=== PATIENT | female | born 1995 | race Caucasian/White ===

== ENCOUNTER 2017-09-16 12:59 | Emergency (ER) | payer OTHER ==
--- NOTE | 2017-09-16 13:01 | ER Document Report ---
HPI - HPI Patient complains to provider of: eye irritation bilaterally Onset: This afternoon Context: 21 yo non contact lense wearer.female c/o sudden onset of red itchy eyes after eating at [employer] for lunch today. No new makeup or detergents. NO previous sx like this. No eyedrops. No meds. No pain, no drainage. Associated Symptoms: None Exacerbated by: Denies Relieved by: Denies - ROS ROS below otherwise negative: Yes Systems Reviewed and Negative: Yes All other systems reviewed and negative Past Medical History - General Information source: Patient - Social History Smoking Status: Never Smoker Frequency of alcohol use: None Drug Abuse: None Occupation: [employer] Lives with: Spouse/Significant other Family History: Reviewed & Not Pertinent - Medical History Medical History: Negative Past Surgical History: Reports: Hx Section Vertical Provider Document - CONSTITUTIONAL Agree With Documented VS: Yes Exam Limitations: No Limitations General Appearance: No Apparent Distress - HEENT HEENT: Normocephalic, PERRLA. negative: Conjuctival Injection Notes: no fluorescein uptake, periorbital pink rash, mild swelling to upper lid with chemosis left conjunctiva - NECK Neck: Supple. negative: Lymphadenopathy-Left, Lymphadenopathy-Right - BACK Back: Normal Inspection - MUSCULOSKELETAL/EXTREMETIES Musculoskeletal/Extremeties: MAEW - NEURO Level of Consciousness: Awake, Alert Motor/Sensory: No Motor Deficit, No Sensory Deficit - DERM Integumentary: Warm, Dry Discharge - Discharge Clinical Impression: Allergic conjunctivitis Qualifiers: Laterality: left Qualified Code(s): H10.12 - Acute atopic conjunctivitis, left eye Chemosis Qualifiers: Laterality: left Qualified Code(s): H11.422 - Conjunctival edema, left eye Condition: Good Disposition: HOME, SELF-CARE Instructions: Chemosis ([facility]), Conjunctivitis, Allergic, Use of Diphenhydramine , Eyedrop Use ([facility]) Additional Instructions: take benadryl when you get home ([address]) claritin was a non sedating antihistamine pepcid is a histamine 2 mert cool compress allergy eyedrop use Prescriptions: Olopatadine HCl [Pataday] 1 drop OS DAILY #1 bottle
[2017-09-16] MEDS ORDERED: TETRACAINE HCL 0.5% OPH SOLN 2 ML OU ONE (13:03)
[2017-09-16 13:04] VITALS: BP 132/77
[2017-09-16] MEDS ORDERED: LORATADINE 10 MG TABLET PO ONE (13:18)
[2017-09-16] MEDS ORDERED: FAMOTIDINE 20 MG TABLET PO ONE (13:18)
== END 2017-09-16 13:35 | disposition home or self-care (01) ==
LOC: ER 12:59
DX: H10.12 Acute atopic conjunctivitis, left eye (principal); H11.422 Conjunctival edema, left eye
CPT/HCPCS: 99282